=== PATIENT | female | born 1995 | race Asian ===

== ENCOUNTER → 2017-12-30 11:52 | Outpatient (CLI) | payer OTHER, SELFPAY ==
[2017-12-30 13:18] LABS: Pregnancy Test Urine Negative (Negative)
== END ==
PROVIDERS: Family Provider Family Medicine; PCP Family Medicine; Visit Provider Physician Assistant
DX: N39.0 Urinary tract infection, site not specified (principal); R30.0 Dysuria
CPT/HCPCS: 81025; 87086